=== PATIENT | male | born 1970 | race Caucasian/White ===

== ENCOUNTER 2019-06-21 11:16 | Emergency (ER) | payer SELFPAY | END 2019-06-21 13:40 | disposition home or self-care (01) | PROVIDERS: Emergency Provider Physician Assistant; Family Provider Family Medicine; Visit Provider Physician Assistant | DX: S52.025A Nondisplaced fracture of olecranon process without intraarticular extension of left ulna, initial encounter for closed fracture (principal); W01.0XXA Fall on same level from slipping, tripping and stumbling without subsequent striking against object, initial encounter; Y92.009 Unspecified place in unspecified non-institutional (private) residence as the place of occurrence of the external cause; I10 Essential (primary) hypertension | CPT/HCPCS: 29105; 73080; 99283 ==

== ENCOUNTER → 2019-06-28 11:22 | Outpatient (BNVA) | payer SELFPAY | PROVIDERS: Family Provider Family Medicine; PCP Nurse Practitioner Family; Visit Provider Specialist | DX: M25.522 Pain in left elbow (principal) | CPT/HCPCS: 73080 ==

== ENCOUNTER 2021-03-30 14:52 | Outpatient (CLI) | payer OTHER, SELFPAY ==
--- NOTE | 2021-03-30 15:03 | US_ITS ---
WS: [id number] INDICATION: Ultrasound left upper abdominal pain TECHNIQUE: Ultrasound soft tissue area of concern. FINDINGS: Ultrasound soft tissue area of concern in the left upper abdomen. No evidence of cystic or solid lesion in the area of concern. No drainable fluid collections. No visualized hernia. US/US soft tissue/extremity [id number] IMPRESSION: No suspicious abnormality in the area of concern.
== END 2021-03-30 14:53 | disposition home or self-care (01) ==
LOC: RAD 15:01
PROVIDERS: PCP Nurse Practitioner Family; Visit Provider Nurse Practitioner Family
DX: R22.2 Localized swelling, mass and lump, trunk (principal); R10.12 Left upper quadrant pain
CPT/HCPCS: 76882